=== PATIENT | male | born 1995 | race American Indian/Alaskan Native ===

== ENCOUNTER 2021-08-22 23:04 | Emergency (ER) | payer SELFPAY ==
[2021-08-23] MEDS ORDERED: FAMOTIDINE 20 MG TAB PO ONE (00:04)
[2021-08-23] MEDS ORDERED: methylPREDNISolone Sod Succinate 125 MG/2 ML INJ IM ONE (00:04)
[2021-08-23] MEDS ORDERED: diphenhydrAMINE 25 MG CAP PO ONE (00:04)
--- NOTE | 2021-08-23 00:57 | Emergency Department Report ---
ED Allergic Reaction HPI - General Chief complaint: Allergic Reaction Stated complaint: ALLERGIC REACTION Source: patient Mode of arrival: Ambulatory Limitations: No Limitations - History of Present Illness Initial Comments: Patient is a 26-year-old -[place] male with no past medical history who presented to the ED with complaint of acute onset persistent diffuse itchy erythematous maculopapular urticarial rashes after eating food prepared with peanut oil about 2 hours ago. Patient states that he has done allergy to peanuts and accidentally ate this food that had been cooked in peanut oil and started experiencing persistent itchy diffuse itchy erythematous maculopapular rashes. Patient denies nausea, vomiting, diarrhea, chest pain, shortness of breath, wheezing, cough, sore throat, dysphagia, dysphonia, swollen lips or tongue, swollen face or diaphoresis and change in vision, syncope or dizziness. MD Complaint: allergic reaction, hives -: Sudden, hour(s) (2) Exposure: food Symptoms: rash, itching. denies: facial swelling, lip swelling, difficulty swallowing, difficulty breathing, orolingual swelling, hoarseness, syncopy, dizziness, nausea, vomiting, other, abdominal pain Severity: severe Treatment Prior to Arrival: none Previous Allergy History: none - Related Data Previous Rx's Medication Instructions Recorded Last Taken Type Famotidine [Pepcid] 20 mg PO BID #40 tablet 08/23/21 Unknown Rx Prednisone [predniSONE 10 mg 10 mg PO .TAPER #1 tab.ds.pk 08/23/21 Unknown Rx (6-Day Pack, 21 Tabs)] diphenhydrAMINE [Benadryl] 25 mg IV Q6HR PRN #40 vial 08/23/21 Unknown Rx Allergies Allergy/AdvReac Type Severity Reaction Status Date / Time No Known Allergies Allergy Unverified 08/22/21 23:22 ED Review of Systems ROS: Stated complaint: ALLERGIC REACTION Other details as noted in HPI Constitutional: denies: chills, fever Eyes: denies: eye pain, eye discharge, vision change ENT: denies: ear pain, throat pain Respiratory: denies: cough, shortness of breath, wheezing Cardiovascular: denies: chest pain, palpitations Endocrine: no symptoms reported Gastrointestinal: denies: abdominal pain, nausea, vomiting, diarrhea Genitourinary: denies: urgency, dysuria Musculoskeletal: denies: back pain, joint swelling, arthralgia Skin: rash, change in color, pruritus. denies: lesions Neurological: denies: headache, weakness, paresthesias Psychiatric: denies: anxiety, depression Hematological/Lymphatic: denies: easy bleeding, easy bruising ED Past Medical Hx - Past Medical History Previous Medical History?: No - Surgical History Past Surgical History?: No - Medications Home Medications: Home Medications Medication Instructions Recorded Confirmed Last Taken Type Famotidine [Pepcid] 20 mg PO BID #40 tablet 08/23/21 Unknown Rx Prednisone [predniSONE 10 mg 10 mg PO .TAPER #1 tab.ds.pk 08/23/21 Unknown Rx (6-Day Pack, 21 Tabs)] diphenhydrAMINE [Benadryl] 25 mg IV Q6HR PRN #40 vial 08/23/21 Unknown Rx ED Physical Exam - General Limitations: No Limitations General appearance: alert, in no apparent distress - Head Head exam: Present: atraumatic, normocephalic, normal inspection - Eye Eye exam: Present: normal appearance, PERRL, EOMI Pupils: Present: normal accommodation - ENT ENT exam: Present: normal exam, normal orophraynx, mucous membranes moist, TM's normal bilaterally, normal external ear exam - Neck Neck exam: Present: normal inspection, full ROM - Respiratory Respiratory exam: Present: normal lung sounds bilaterally. Absent: respiratory distress, wheezes, rales, rhonchi, chest wall tenderness, accessory muscle use, decreased breath sounds, prolonged expiratory, other - Cardiovascular Cardiovascular Exam: Present: regular rate, normal rhythm, normal heart sounds. Absent: systolic murmur, diastolic murmur, rubs, gallop - GI/Abdominal GI/Abdominal exam: Present: soft, normal bowel sounds. Absent: distended, tenderness, guarding, rebound, rigid, hyperactive bowel sounds, hypoactive bowel sounds, organomegaly - Extremities Exam Extremities exam: Present: normal inspection, full ROM, normal capillary refill - Back Exam Back exam: Present: normal inspection, full ROM. Absent: tenderness, CVA tenderness (R), CVA tenderness (L), muscle spasm, paraspinal tenderness, vertebral tenderness - Neurological Exam Neurological exam: Present: alert, oriented X3, CN II-XII intact, normal gait, reflexes normal - Psychiatric Psychiatric exam: Present: normal affect, normal mood - Skin Skin exam: Present: warm, dry, intact, normal color, rash (Diffuse erythematous urticarial rashes), erythema, urticaria ED Course Vital Signs 08/22/21 23:07 Temperature 99.0 F Pulse Rate 94 H Respiratory 18 Rate Blood Pressure 175/93 O2 Sat by Pulse 97 Oximetry ED Medical Decision Making - Medical Decision Making This is a 26-year-old -[place] male with no past medical history who presented to the ED with complaint of acute onset persistent diffuse itchy erythematous maculopapular urticarial rashes after eating food prepared with peanut oil about 2 hours ago. Patient states that he has done allergy to peanuts and accidentally ate this food that had been cooked in peanut oil and started experiencing persistent itchy diffuse itchy erythematous maculopapular rashes. In the ED, patient is alert and oriented x3 and is not in any distress. Patient was treated in the ED for acute allergic reaction with Solu-Medrol 125 mg intermuscular injection, Pepcid 40 mg p.o. x1 and Benadryl 50 mg p.o. x1. On reevaluation, patient's itching resolved and patient will discharge home on medications. Patient was advised to return to the ED immediately if symptoms get worse, otherwise follow-up with the primary care physician in 5 to 7 days for reevaluation or return to the ED immediately if symptoms get worse. - Differential Diagnosis allergic reaction; itching; urticaria; food allergy Critical care attestation.: If time is entered above; I have spent that time in minutes in the direct care of this critically ill patient, excluding procedure time. ED Disposition Clinical Impression: Food allergy, peanut, Acute urticaria, Itching with irritation Acute allergic reaction Qualifiers: Encounter type: initial encounter Qualified Code(s): T78.40XA - Allergy, unspecified, initial encounter Disposition: HOME / SELF CARE / HOMELESS Is pt being admited?: No Does the pt Need Aspirin: No Condition: Stable Instructions: Pruritus, Allergies, Adult, [id number], Food Allergy, [id number], Hives, [id number], Rash, Adult, Hhhi-au-Coud Additional Instructions: Take medication with food, drink plenty of fluids and follow-up with your primary care physician in 7 to 10 days for reevaluation. Return to the ED immediately if symptoms get worse. Prescriptions: diphenhydrAMINE [Benadryl] 25 mg IV Q6HR PRN #40 vial PRN Reason: Itching and swelling Famotidine [Pepcid] 20 mg PO BID #40 tablet Prednisone [predniSONE 10 mg (6-Day Pack, 21 Tabs)] 10 mg PO .TAPER #1 tab.ds.pk Referrals: [facility] [Provider Group] - 7-10 days Time of Disposition: 00:54 Print Language: VENEZUELAN
[2021-08-23 01:26] VITALS: BP 149/88
== END 2021-08-23 01:24 | disposition home or self-care (01) ==
LOC: ED 23:04
DX: L50.9 Urticaria, unspecified (principal); T78.01XA Anaphylactic reaction due to peanuts, initial encounter; L29.9 Pruritus, unspecified
CPT/HCPCS: 96372; 99282; J2930